=== PATIENT | male | born 1945 | race Two or more races ===

== ENCOUNTER 2024-11-09 09:20 | Emergency (ER) | payer OTHER, SELFPAY ==
[2024-11-09 09:24] VITALS: BP 183/102
--- NOTE | 2024-11-09 11:13 | ED.GENMED ---
History of Present Illness
<ARMAND Russ - Last Filed: 11/09/24 12:30>
General
Chief Complaint: Head Injury
Source: patient and family
Exam Limitations: none
Time Seen by Provider: 11/09/24 10:41
Nursing documentation reviewed up to this point in time: agreed with
History of Present Illness
History of Present Illness:
Patient is a 79-year-old male who was brought to the ER by family. Patient was wearing bigger shoes and describes mechanical fall hitting his right forehead on a windowsill. He denies loss of conscious. He does report has a slight headache which
is improved since injury. He was mildly nauseous which has since also resolved. This occurred around 8:30 this morning. Patient is on apixaban for Eliquis. Patient is visiting from [place] presently. Pt denies neck pain . He did hit his
shoulder and does have right shoulder pain . lst tetanus: 2021
Review of Systems
<ARMAND Russ - Last Filed: 11/09/24 12:30>
Review of Systems
Allergies reviewed?: Yes
All Other Systems: ROS reviewed and negative except as documented in HPI and ROS
Constitutional: Reports no symptoms; Denies fever, fatigue or chills
Respiratory: Reports no symptoms
Cardiac: Reports no symptoms
ABD/GI: Reports nausea (Nausea has since resolved); Denies vomiting
: Reports no symptoms
Musculoskeletal: Reports other (Right shoulder pain); Denies neck pain
Phy Exam
<ARMAND Russ - Last Filed: 11/09/24 12:30>
General Physical Exam
General Presentation: no apparent distress
General age: appears stated age
General Skin: warm and dry
General Habitus: elderly
General Mental: alert
General Hydration: appears well hydrated
Eye Exam
Eye Exam: PERRL and EOMI
Eye Exam General: PERRL: bilateral and EOM intact: bilateral
Pupil Exam: Bilateral: round and reactive
Neurological Exam
Neurological Exam: alert, oriented x3, no motor deficits and no sensory deficits
Musculoskeletal Exam
Musculoskeletal Exam: other (+ Forehead hematoma small abrasion ; + hematoma mildly tender to prox right deltoid region mild discomfort with abduction of right shoulder )
Skin Exam
Skin Exam: normal color and warm/dry
Psychiatric Exam
Psychiatric Exam: normal mood/affect
Course
<ARMAND Russ - Last Filed: 11/09/24 12:30>
Orders/Labs/Results
Orders:
Orders
11/09/24 09:23
CT Cervical Spine W/o Iv Contr Urgent
Comment:
Reason For Exam: fall, head injury
CT Head W/o Iv Contrast Urgent
Comment: on thinners
Reason For Exam: fall, head injury
11/09/24 11:27
Shoulder, Right, Trauma [CR Shoulder, Trauma - Right] Urgent
Comment:
Reason For Exam: trauma
11/09/24 11:28
Acetaminophen [Tylenol] 650 mg PO NOW STA
Vital Signs
Initial and Last Documented VS:
Initial Vital Signs
Temp Pulse Resp BP Pulse Ox
97.7 F 73 20 183/102 97
11/09/24 09:24 11/09/24 09:24 11/09/24 09:24 11/09/24 09:24 11/09/24 09:24
Last Documented Vital Signs
Temp Pulse Resp BP Pulse Ox
97.7 F 73 20 183/102 97
11/09/24 09:24 11/09/24 09:24 11/09/24 09:24 11/09/24 09:24 11/09/24 09:24
Tungsten Refiner consulted with Physician
Tungsten Refiner consulted with physician?: Yes
Name of Physician Consulted: Sosa
<Brayden Swan DO - Last Filed: 11/09/24 12:11>
Orders/Labs/Results
Orders:
Orders
11/09/24 09:23
CT Cervical Spine W/o Iv Contr Urgent
Comment:
Reason For Exam: fall, head injury
CT Head W/o Iv Contrast Urgent
Comment: on thinners
Reason For Exam: fall, head injury
11/09/24 11:27
Shoulder, Right, Trauma [CR Shoulder, Trauma - Right] Urgent
Comment:
Reason For Exam: trauma
11/09/24 11:28
Acetaminophen [Tylenol] 650 mg PO NOW STA
Vital Signs
Initial and Last Documented VS:
Initial Vital Signs
Temp Pulse Resp BP Pulse Ox
97.7 F 73 20 183/102 97
11/09/24 09:24 11/09/24 09:24 11/09/24 09:24 11/09/24 09:24 11/09/24 09:24
Last Documented Vital Signs
Temp Pulse Resp BP Pulse Ox
97.7 F 73 20 183/102 97
11/09/24 09:24 11/09/24 09:24 11/09/24 09:24 11/09/24 09:24 11/09/24 09:24
<ARMAND Russ - Last Filed: 11/09/24 12:30>
MDM/Problems Addressed
Differential Diagnosis Includes:
Not limited to hematoma head injury contusion intracranial hemorrhage abrasion
MDM/Problems Addressed:
79-year-old male describes mechanical slip and fall hitting right frontal head. He is on Eliquis no loss of conscious. He did have a headache and nausea. He is no longer nauseous his headache is improved. He denies any neck pain he does have
mild right shoulder pain. He is awake alert no acute distress with a normal neurological exam. 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
outpatient imaging including dedicated CAT scan or MRI. Did review this with patient and family at bedside.
X-ray negative for shoulder fracture likely contusion discussed ice Tylenol , gentle range of motion. Patient is visiting from [place] will DC with outpatient follow-up with residency clinic.
<ARMAND Russ - Last Filed: 11/09/24 12:30>
*Radiology
Radiology exam reviewed: radiology read reviewed
*Pulse Oximetry
Patient hypoxic: no
*Critical Care Note
Total Time (30-74mins, 75-104mins- exclusive of procedures): Not Applicable
ED Attending Note
<ARMAND Russ - Last Filed: 11/09/24 12:30>
-
Portions of this chart may have been created with voice recognition software.� Occasional wrong word or��sound alike� substitutions may have occurred due to the inherent limitations of voice recognition software.
<Brayden Swan DO - Last Filed: 11/09/24 12:11>
ED Attending Note
Patient seen and examined by attending physician: Yes
I performed the substantive portion of visit, reviewed & personally made and approve the management plan that is documented in note by myself or DENZEL.: Yes
ED Attending Note:
I agree with Maria R's note
Patient suffered a fall, struck his forehead. No loss of conscious. Patient does take Eliquis.
General: Awake, Alert, Oriented X3. No acute distress.
Vitals: unremarkable
Head: Atraumatic, small right cephalohematoma
Eyes: Pupils equal, EOMI
Throat: Airway intact, no exudates
Neck: Trachea midline
Lungs: Clear and equal b/l
Heart: Regular rate, no murmurs
Abd: Soft, Nontender, No pulsatile mass
Neuro: Cranial nerves intact, muscle strength equal bilaterally
Skin: Warm, dry, no rash
Extremities: pulses equal b/l, no edema. Mild pain with range of motion of the right shoulder, no deformity, no limitation in range of motion.
Head CT cervical spine CT reports reviewed. Essentially no acute abnormality. Patient informed of suspicious radiology finding that requires outpatient follow-up
Discharge Plan
Departure
Patient Disposition: Home (Routine Discharge)
Date of Disposition: 11/09/24
Time of Disposition: 12:26
Patient with high blood pressure during this ER visit?: Yes
Condition: Fair
Covid-19: Not Applicable
Discharge Problem:
Hematoma, Head injury, Contusion of right shoulder
Instructions: Wound Care (DC), Head Injury in Adults (DC), Contusion (DC), BLOOD PRESSURE
Referrals:
[facility] [Outside]
Ke Braswell MD [Active, Orthopedics]
UNKNOWN - PT DOES,NOT KNOW [Family Provider]
Activity Restrictions/Additional Instructions:
As discussed CAT scans were negative for acute findings. Please follow-up for other additional findings on CAT scan. It Is recommended that you do have a repeat CAT scan 3 months or MRI. Please follow-up closely with your family doctor for this.
Return if any worsening of symptoms of increased headache nausea vomiting difficulty walking/balance issues. Ice the affected areas for the next 24 hours 20 minutes at a time several times a day. You may take Tylenol for pain. Do gentle range of
motion to right shoulder.
Follow-up with family practice clinic in the next several days for reevaluation. Orthopedic doctor as needed.
Interventions
Interventions:
*Risk Screen - Suicide Last Done: 11/09/24 09:24
*General Assessment Last Done: 11/09/24 09:24
Discharge Date and Time
Print Language: PERUVIAN
[2024-11-09] MEDS: TYLENOL 650 MG PO (12:35)
[2024-11-09 12:37] VITALS: BP 168/96
== END 2024-11-09 12:50 | disposition home or self-care (01) ==
LOC: EMR 09:20
PROVIDERS: EMERGENCY PHYSICIAN Emergency Medicine
DX: S00.03XA Contusion of scalp, initial encounter (principal); S40.011A Contusion of right shoulder, initial encounter; W01.198A Fall on same level from slipping, tripping and stumbling with subsequent striking against other object, initial encounter; Z79.01 Long term (current) use of anticoagulants
CPT/HCPCS: 99284; 70450; 72125; 73030